=== PATIENT | male | born 1950 ===

== ENCOUNTER → 2025-11-13 08:51 | Outpatient (BNVA) | payer MEDICARE, SELFPAY | PROVIDERS: Family Provider Family Medicine; Visit Provider Physician Assistant | DX: S62.660A Nondisplaced fracture of distal phalanx of right index finger, initial encounter for closed fracture (principal); W23.2XXA Caught, crushed, jammed or pinched between a moving and stationary object, initial encounter | CPT/HCPCS: 73130 ==

== ENCOUNTER 2025-11-13 09:56 | Outpatient (CLI) | payer MEDICARE, SELFPAY | END 2025-11-13 09:57 | disposition home or self-care (01) | LOC: SOT 09:57 | PROVIDERS: Family Provider Family Medicine; Visit Provider Physician Assistant | DX: Z46.89 Encounter for fitting and adjustment of other specified devices (principal); S69.92XA Unspecified injury of left wrist, hand and finger(s), initial encounter; W31.2XXA Contact with powered woodworking and forming machines, initial encounter | CPT/HCPCS: 97760; L3935 ==